=== PATIENT | male | born 1970 | race Two or more races ===

== ENCOUNTER 2018-03-26 13:05 | Emergency (ER) | payer OTHER ==
[2018-03-26 13:12] VITALS: BP 143/101; PULSE 79; RESP 18; TEMP 98.9; O2SAT 99
--- NOTE | 2018-03-26 13:30 | ED PDOC ---
HPI: General Adult Time Seen by Provider: 03/26/18 13:19 Chief Complaint (Nursing): Medical Clearance Chief Complaint (Provider): medical clearance History Per: Patient History/Exam Limitations: no limitations Onset/Duration Of Symptoms: Hrs (today) Additional Complaint(s): Charly Chappell is a 47 year old male, with a past medical history of diabetes, HTN and HIV, who was brought to the emergency department by police for medical and psychiatric evaluation prior to incarceration. Patient is currently complaining of dizziness and admits to heroin use today. He denies any palpitations or other medical complaints. PMD: None provided Past Medical History Reviewed: Historical Data, Nursing Documentation, Vital Signs Vital Signs: Last Vital Signs Temp 98.9 F 03/26/18 13:08 Pulse 79 03/26/18 13:08 Resp 18 03/26/18 13:08 BP 143/101 H 03/26/18 13:08 Pulse Ox 99 03/26/18 13:08 - Medical History PMH: Diabetes, HIV, HTN - Surgical History Surgical History: No Surg Hx - Family History Family History: States: Unknown Family Hx - Social History Drugs: Opiates (heroin) - Allergies Allergies/Adverse Reactions: Allergies Allergy/AdvReac Type Severity Reaction Status Date / Time shellfish derived Allergy RASH Verified 03/26/18 13:08 Review of Systems ROS Statement: Except As Marked, All Systems Reviewed And Found Negative Cardiovascular: Negative for: Palpitations Neurological: Positive for: Dizziness Physical Exam - Reviewed Nursing Documentation Reviewed: Yes Vital Signs Reviewed: Yes - Physical Exam Appears: Positive for: No Acute Distress Head Exam: Positive for: ATRAUMATIC, NORMAL INSPECTION, NORMOCEPHALIC Skin: Positive for: Normal Color, Warm, Dry Eye Exam: Positive for: Normal appearance, EOMI, PERRL Neck: Positive for: Normal, Painless ROM Cardiovascular/Chest: Positive for: Regular Rate, Rhythm. Negative for: Murmur Respiratory: Positive for: Normal Breath Sounds. Negative for: Respiratory Distress Gastrointestinal/Abdominal: Positive for: Normal Exam, Soft. Negative for: Tenderness Back: Positive for: Normal Inspection. Negative for: L CVA Tenderness, R CVA Tenderness, Vertebral Tenderness Extremity: Positive for: Normal ROM (upper and lower extremities). Negative for: Deformity, Swelling Neurologic/Psych: Positive for: Alert, Oriented. Negative for: Motor/Sensory Deficits - Laboratory Results Result Diagrams: 03/26/18 13:55 03/26/18 13:55 - ECG O2 Sat by Pulse Oximetry: 99 (RA) Pulse Ox Interpretation: Normal Medical Decision Making Medical Decision Making: Time: 13:19 Initial Impression: Medical and psychiatric clearance Initial Plan: --EKG --Alcohol serum --CMP --Drug screen, urine --CBC w/ differential --reevaluation BP rechecked 138/92 Scribe Attestation: Documented by Maximilian Rendon, acting as a scribe for Lopez Templeton MD. Provider Scribe Attestation: All medical record entries made by the Scribe were at my direction and personally dictated by me. I have reviewed the chart and agree that the record accurately reflects my personal performance of the history, physical exam, medical decision making, and the department course for this patient. I have also personally directed, reviewed, and agree with the discharge instructions and disposition. Disposition - Clinical Impression Clinical Impression: Substance abuse - Patient ED Disposition Is Patient to be Admitted: No Counseled Patient/Family Regarding: Diagnosis, Need For Followup - Disposition Disposition: Discharged/Transfer to Law Enforcement Disposition Time: 14:32 Condition: FAIR Additional Instructions: Medically and psychiatrically stable for incarceration Instructions: General (DC), Drug Abuse and Drug Addiction (DC) Forms: Cardback (Congolese)
[2018-03-26 14:14] LABS: BASO % 0.9 % (0.0-2.0); EOS # 0.4 K/uL (0.0-0.7); EOS % 11.3 % (0.0-4.0); HEMOGLOBIN 10.4 g/dL (12.0-18.0); LYMPH % 31.6 % (20.0-40.0); MEAN CELL VOLUME 94.4 fl (80.0-94.0); MEAN CORPUSCULAR HEMOGLOBIN 30.6 pg (27.0-31.0); MEAN CORPUSCULAR HGB CONC 32.4 g/dL (33.0-37.0); MEAN PLATELET VOLUME 8.4 fl (7.2-11.7); MONO # 0.5 K/uL (0.0-0.8); MONO % 14.8 % (0.0-10.0); NEUT # 1.3 K/uL (1.8-7.0); NEUT % 41.4 % (50.0-75.0); NRBC % 0.2 % (0.0-0.0); RBC 3.39 Mil/uL (4.40-5.90); RED CELL DISTRIBUTION WIDTH 13.5 % (11.5-14.5); WHITE BLOOD COUNT 3.2 K/uL (4.8-10.8)
[2018-03-26 14:30] LABS: ALBUMIN 3.9 g/dL (3.5-5.0); ALT/SGPT 23 U/L (21-72); AST/SGOT 41 U/L (17-59); BLOOD UREA NITROGEN 18 mg/dl (9-20); CALCIUM 9.1 mg/dL (8.4-10.2); GFR NON-AFRICAN AMERICAN > 60
[2018-03-26 14:40] LABS: BARBITURATES, UR NEGATIVE (NEGATIVE); BENZODIAZEPINES, UR NEGATIVE (NEGATIVE); OPIATES, UR POSITIVE (NEGATIVE); PHENCYCLIDINE, UR NEGATIVE (NEGATIVE)
--- NOTE | 2018-03-27 08:45 | CARD ---
APPROVED REPORT Date of service: 03/26/2018 EKG Measurement Heart [id number] <Conclusion> Normal sinus rhythm Incomplete right bundle branch block Borderline ECG
== END 2018-03-26 14:48 ==
LOC: H.ER 13:05
DX: F19.10 Other psychoactive substance abuse, uncomplicated (principal)